=== PATIENT | male | born 1985 | race Two or more races ===

== ENCOUNTER 2019-04-18 07:59 | Emergency (ER) | payer BC ==
[~2019-04-18] VITALS: Ht 182.9 cm; Wt 91.6 kg
== END 2019-04-18 18:06 | disposition home or self-care (01) ==
LOC: ER 07:59
DX: R59.0 Localized enlarged lymph nodes (principal); R10.32 Left lower quadrant pain

== ENCOUNTER 2019-04-22 05:44 | Emergency (ER) | payer BC ==
[~2019-04-22] VITALS: Ht 182.9 cm; Wt 9.1 kg
[2019-04-22] MEDS ORDERED: IBU800 MG (06:23)
[2019-04-22] MEDS ORDERED: CATAFLAN (06:24)
[2019-04-22] MEDS ORDERED: FLAGYL500MG PO (16:02)
[2019-04-22] MEDS ORDERED: CIPRO500 MG PO (16:02)
== END 2019-04-22 19:00 | disposition home or self-care (01) ==
LOC: ER 05:44
DX: K65.0 Generalized (acute) peritonitis (principal)

== ENCOUNTER 2019-04-25 13:13 | Inpatient (IN) | payer BC ==
[~2019-04-25] VITALS: Ht 182.9 cm; Wt 200.0 kg
[~2019-04-25 13:13] MED LIST: CATAFLAN; CIPRO500 MG PO; FLAGYL500MG PO; IBU800 MG
--- NOTE | 2019-04-25 14:05 | NUR ---
SE LLAMA PTE Y NO CONTESTA . NO ESTA EN LA JESS DE ESPERA.
--- NOTE | 2019-04-25 14:30 | NUR ---
PTE REFEIRE ABCESO EN EL INGINAL LADO MELISSA DESDE HACE VARIOS LOPEZ.
--- NOTE | 2019-04-25 17:07 | NUR ---
SE RECIBE PACIENTE ALERTA Y ORIENTADO POR ZAK ESFERAS. MS MARTINEZ ORIENTA A PACIENTE SOBRE PROCEDIMIENTO Y TX, REFIERE ENTENDER. EXTRAE MUYESTRAS DE LABORATORIO CON MEDIDAS ASEPTICAS Y ADMINISTRA MEDICAMENTOS DELORES ORDEN MEDICA.
--- NOTE | 2019-04-25 17:46 | NUR ---
SE ORIENTA AL PACIENTE SOBRE MEDICAMENTO A SER ADMINISTRADO DELORES ORDEN MEDICA. PACIENTE REFIERE ENTENDER. SE LE PROVEE EL MEDICAMENTO Y SE OBSERVA AL PACIENTE POR CAMBIOS EN CONDICION DE NAM.
--- NOTE | 2019-04-26 01:15 | NUR ---
SE RECIBE PTE ALERTA Y ORIENTADO X3 EN ALLA CON BARADNAS ELEVADAS. PTE SE OBSERVA CON H/L EL CUAL SE OBSERVA PATENTE CHELSEA DE EDEMA. PTE EN ESPERA DE CONSULTA CON MEDICINA INTERNA. PTE SE OCNTINUA MONITORIANDO POR CAMBIOS.
[2019-04-26] MEDS ORDERED: ZIPSOR25 MG (16:03)
[2019-05-04] MEDS ORDERED: MORGIDOX100 MG PO (10:41)
[2019-05-04] MEDS ORDERED: PROTONIX40 MG PO (10:41)
[2019-05-04] MEDS ORDERED: AMPICILLIN TRI500 MG PO (10:41)
== END 2019-05-04 11:19 | disposition home or self-care (01) | DRG 803 ==
LOC: ER 13:13 → SURG 04-26 05:15
PROVIDERS: ADMIT Surgery
PROC: 0Y9600Z Drainage of Left Inguinal Region with Drainage Device, Open Approach (ICD-10-PCS; 2019-04-26)
PROC: 07BJ0ZX Excision of Left Inguinal Lymphatic, Open Approach, Diagnostic (ICD-10-PCS; principal; 2019-04-26 13:00)
DX: L04.1 Acute lymphadenitis of trunk (principal); L03.314 Cellulitis of groin; B95.4 Other streptococcus as the cause of diseases classified elsewhere